=== PATIENT | male | born 1965 | race Two or more races ===

== ENCOUNTER 2024-04-02 13:22 | Inpatient (IN) | payer OTHER ==
[2024-04-02 15:00] VITALS: BMI 21.8
[2024-04-02] MEDS ORDERED: chlordiazePOXIDE HCL 25 MG CAPSULE PO PRN (15:52)
[2024-04-02] MEDS ORDERED: BENZONATATE 200 MG CAPSULE PO PRN (15:53)
[2024-04-02] MEDS ORDERED: guaiFENesin 600 MG TABLET.ER (FP) PO PRN (15:53)
[2024-04-02] MEDS ORDERED: MAGNESIUM HYDROX 2400MG/30ML ORAL SUSPENSION 30 ML CUP PO PRN (15:53)
[2024-04-02] MEDS ORDERED: POLYETHYLENE GLYCOL (HEALTHYLAX) 3350 17 GM PACKET PO PRN (15:53)
[2024-04-02] MEDS ORDERED: ONDANSETRON *ODT* 4 MG TABLET SL PRN (15:53)
[2024-04-02] MEDS ORDERED: BENZOCAINE/MENTHOL (CHLORASEPTIC ) LOZENGE MM PRN (15:53)
[2024-04-02] MEDS ORDERED: LOPERAMIDE HCL 2 MG CAPSULE PO PRN (15:53)
[2024-04-02] MEDS ORDERED: NICOTINE POLACRILEX 2 MG GUM BUC PRN (15:53)
[2024-04-02] MEDS ORDERED: DICYCLOMINE HCL 10 MG CAPSULE PO PRN (15:53)
[2024-04-02] MEDS ORDERED: NICOTINE POLACRILEX 2 MG LOZENGE BC PRN (15:53)
[2024-04-02] MEDS ORDERED: MAG HYDROX/AL HYDROX/SIMETH 30 ML UNIT-DOSE CUP PO PRN (15:53)
[2024-04-02] MEDS ORDERED: chlordiazePOXIDE HCL 25 MG CAPSULE ONE (16:11)
[2024-04-02] MEDS: chlordiazePOXIDE HCL 25 MG CAPSULE PO SCH (16:16)
[2024-04-02] MEDS: ACETAMINOPHEN 325 MG TABLET (FP) PO PRN (18:25)
[2024-04-02] MEDS: propRANOLol HCL 10 MG TABLET PO ONE ×2 (18:25→18:42)
[2024-04-02] MEDS: MELATONIN 5 MG TABLETS PO SCH (22:25)
[2024-04-02] MEDS: THIAMINE 100 MG TABLET PO SCH (22:25)
[2024-04-02] MEDS: levETIRAcetam 500 MG TABLET (FP) PO SCH (22:25)
[2024-04-02] MEDS: METHOCARBAMOL 500 MG TABLET PO PRN (22:25)
[2024-04-03] MEDS: PRENATAL VITAMINS W/ FOLIC ACID TABLET (FP) PO SCH (10:40)
[2024-04-04] MEDS: chlordiazePOXIDE HCL 25 MG CAPSULE PO SCH (05:56)
[2024-04-04] MEDS: VALSARTAN 80 MG TABLET PO SCH (11:45)
[2024-04-04 12:58] VITALS: BP 132/77; PULSE 88; RESP 18; TEMP 97.3
[2024-04-05] MEDS ORDERED: chlordiazePOXIDE HCL 10 MG CAPSULE PO PRN
[2024-04-05] MEDS ORDERED: chlordiazePOXIDE HCL 10 MG CAPSULE PO SCH (05:00)
[2024-04-06] MEDS ORDERED: chlordiazePOXIDE HCL 10 MG CAPSULE PO SCH (05:00)
[2024-04-07] MEDS ORDERED: chlordiazePOXIDE HCL 10 MG CAPSULE PO ONE (05:00)
== END 2024-04-04 13:10 | disposition home or self-care (01) | DRG 775 ==
LOC: YASAS 13:22 → Y6N 17:27
PROVIDERS: ADMIT Allergy & Immunology; ATTEND Surgery
PROC: HZ2ZZZZ Detoxification Services for Substance Abuse Treatment (ICD-10-PCS; principal; 2024-04-02)
DX: F10.230 Alcohol dependence with withdrawal, uncomplicated (principal); F41.9 Anxiety disorder, unspecified; I25.2 Old myocardial infarction; Z87.891 Personal history of nicotine dependence; Z91.199 Patient's noncompliance with other medical treatment and regimen due to unspecified reason; Z86.69 Personal history of other diseases of the nervous system and sense organs
CPT/HCPCS: 80305; 80307; 93005; 93010

== ENCOUNTER 2024-07-04 11:26 | Inpatient (IN) | payer OTHER ==
[2024-07-04 12:11] VITALS: BMI 24.3
[2024-07-04] MEDS ORDERED: POLYETHYLENE GLYCOL (HEALTHYLAX) 3350 17 GM PACKET PO PRN (16:39)
[2024-07-04] MEDS ORDERED: guaiFENesin 600 MG TABLET.ER (FP) PO PRN (16:39)
[2024-07-04] MEDS ORDERED: ONDANSETRON *ODT* 4 MG TABLET SL PRN (16:39)
[2024-07-04] MEDS ORDERED: BENZOCAINE/MENTHOL (CHLORASEPTIC ) LOZENGE MM PRN (16:39)
[2024-07-04] MEDS ORDERED: IBUPROFEN 400 MG TABLET (FP) PO PRN (16:39)
[2024-07-04] MEDS ORDERED: hydrOXYzine PAMOATE 25 MG CAPSULE (FP) PO PRN (16:39)
[2024-07-04] MEDS ORDERED: BENZONATATE 200 MG CAPSULE PO PRN (16:39)
[2024-07-04] MEDS ORDERED: BISMUTH SUBSALICYLATE 524 MG/30 ML PO PRN (16:39)
[2024-07-04] MEDS ORDERED: chlordiazePOXIDE HCL 25 MG CAPSULE PO PRN (16:39)
[2024-07-04] MEDS ORDERED: MAGNESIUM HYDROX 2400MG/30ML ORAL SUSPENSION 30 ML CUP PO PRN (16:39)
[2024-07-04] MEDS ORDERED: NALOXONE (NARCAN) HCL 4 MG/0.1 ML SPRAY NS PRN (16:39)
[2024-07-04] MEDS ORDERED: DICYCLOMINE HCL 10 MG CAPSULE PO PRN (16:39)
[2024-07-04] MEDS ORDERED: LOPERAMIDE HCL 2 MG CAPSULE PO PRN (16:39)
[2024-07-04] MEDS ORDERED: MAG HYDROX/AL HYDROX/SIMETH 30 ML UNIT-DOSE CUP PO PRN (16:39)
[2024-07-04] MEDS ORDERED: IBUPROFEN 600 MG TABLET (FP) PO ONE (17:01)
[2024-07-04] MEDS ORDERED: chlordiazePOXIDE HCL 25 MG CAPSULE ONE (17:01)
[2024-07-04] MEDS: chlordiazePOXIDE HCL 25 MG CAPSULE PO SCH (17:04)
[2024-07-04] MEDS: IBUPROFEN 600 MG TABLET (FP) PO PRN (17:05)
[2024-07-04] MEDS: NALOXONE (NYS OPIOID OVERDOSE PROGRAM) 4 MG/0.1 ML SPRAY NS ONE (17:45)
[2024-07-04] MEDS: MELATONIN 5 MG TABLETS PO SCH (22:50)
[2024-07-04] MEDS: levETIRAcetam 500 MG TABLET (FP) PO SCH (22:50)
[2024-07-04] MEDS: THIAMINE 100 MG TABLET PO SCH (22:50)
[2024-07-05] MEDS: ACETAMINOPHEN 325 MG TABLET (FP) PO PRN (08:53)
[2024-07-05] MEDS: PRENATAL VITAMINS W/ FOLIC ACID TABLET (FP) PO SCH (10:23)
[2024-07-05] MEDS: MICONAZOLE NITRATE 28 GM TUBE TP SCH (13:51)
[2024-07-05] MEDS ORDERED: NALOXONE (NYS OPIOID OVERDOSE PROGRAM) 4 MG/0.1 ML SPRAY NS PRN (14:07)
[2024-07-05] MEDS: METHOCARBAMOL 500 MG TABLET PO PRN (22:19)
[2024-07-05] MEDS: ATORVASTATIN CA 10 MG TABLET (FP) PO SCH (22:20)
[2024-07-06] MEDS: chlordiazePOXIDE HCL 25 MG CAPSULE PO SCH (05:45)
[2024-07-06 06:11] VITALS: RESP 16
[2024-07-06 09:17] VITALS: TEMP 97.5
[2024-07-06 09:18] VITALS: BP 161/112; PULSE 124
[2024-07-06] MEDS ORDERED: VALSARTAN 80 MG TABLET PO SCH (11:00)
[2024-07-07] MEDS ORDERED: chlordiazePOXIDE HCL 10 MG CAPSULE PO PRN
[2024-07-07] MEDS ORDERED: chlordiazePOXIDE HCL 10 MG CAPSULE PO SCH (05:00)
[2024-07-08] MEDS ORDERED: chlordiazePOXIDE HCL 10 MG CAPSULE PO SCH (05:00)
[2024-07-09] MEDS ORDERED: chlordiazePOXIDE HCL 10 MG CAPSULE PO ONE (05:00)
== END 2024-07-06 11:17 | disposition left against medical advice (07) | DRG 770 ==
LOC: YASAS 11:26 → Y3N 17:01
PROVIDERS: ADMIT Surgery; ATTEND Surgery
PROC: HZ2ZZZZ Detoxification Services for Substance Abuse Treatment (ICD-10-PCS; principal; 2024-07-04)
DX: F10.230 Alcohol dependence with withdrawal, uncomplicated (principal); F32.A Depression, unspecified; G40.909 Epilepsy, unspecified, not intractable, without status epilepticus; E78.5 Hyperlipidemia, unspecified; I10 Essential (primary) hypertension; R45.89 Other symptoms and signs involving emotional state; Z85.47 Personal history of malignant neoplasm of testis; Z91.199 Patient's noncompliance with other medical treatment and regimen due to unspecified reason
CPT/HCPCS: 80305; 80307; 93005; 93010